=== PATIENT | female | born 1960 | race Caucasian/White ===

== ENCOUNTER → 2022-01-25 08:55 | Outpatient (CLI) | payer OTHER, MEDICAID, SELFPAY ==
--- NOTE | 2022-01-25 | DI.ECHO.S_ITS ---
[facility]---------+ [facility] +---------+ : : [address] : : : : [id number] : : : : Phone: [phone]---------+ Echocardiogram Report + + :Name: MARIELA GALVAN Study Date: 01/25/2022 Height: 67 in : :[facility] ReadingLocation: Weight: 297 lb : : Gender: Female BSA: 2.4 m2 : :: 1960 Age: 61 yrs BP: 128/86 mmHg: :Reason For Study: PALPITATIONS : :Ordering Physician: BARBRA, : :CINDY Performed By: Viktoriya Hurd : :Referring: CINDY BELLE : + + Interpretation Summary The ejection fraction is estimated to be 60-65%. Diastolic parameters suggest probable normal left ventricular diastolic function and normal filling pressures. The right ventricle is normal in size and function. No significant valvular abnormalities. Pulmonary artery pressures cannot be estimated. Procedure: A two-dimensional transthoracic echocardiogram with color flow and Doppler was performed. The study quality was technically difficult. There is no prior echocardiogram noted for this patient. The patient was in sinus rhythm with heart rates between 59-75 bpm during the exam. Left Ventricle: The left ventricle is normal in size and wall thickness. The ejection fraction is estimated to be 60-65%. Diastolic parameters suggest probable normal left ventricular diastolic function and normal filling pressures. Right Ventricle: The right ventricle is normal in size and function. Atria: The left atrial size is normal. Right atrial size is normal. There is no Doppler evidence for an interatrial shunt. Mitral Valve: The mitral valve is normal in structure and function. There is trace mitral regurgitation. Aortic Valve: The aortic valve opens well. There is no aortic valve stenosis. No aortic regurgitation is present. Tricuspid Valve: The tricuspid valve is normal in structure and function. There is trace tricuspid regurgitation. Pulmonary artery pressures cannot be estimated because of the lack of a measurable TR jet velocity. Pulmonic Valve: The pulmonic valve is not well visualized. There is trace pulmonic regurgitation. Great Vessels: The aortic root is normal size. The dimensions of the ascending aorta are normal. The IVC is of normal diameter and collapses greater than 50% with a sniff. This suggests a low right atrial pressure of 3 mm Hg. Pericardium/ Pleura There is no pericardial effusion. There is no pleural effusion. MMode/2D Measurements & Calculations LVIDd: 5.1 cm LVOT diam: 2.2 cm LVIDs: 3.2 cm Ao root diam: 2.9 cm FS: 37.0 % asc Aorta Diam: 3.2 cm IVSd: 1.1 cm Ao Arch Diam (Prox Trans): 2.6 cm LVPWd: 0.92 cm LV moya. diameter/BSA (cm/m^2): 2.1 LV sys. diameter/BSA (cm/m^2): 1.3 LA A2 area: 20.4 cm2 RA long axis: 5.1 cm LA A4 area: 16.9 cm2 RA area: 15.5 cm2 LA length (vol): 5.1 cm RA vol: 40.1 ml LA vol: 57.0 ml RA : 16.8 ml/m2 LA vol index: 23.8 ml/m2 IVC diam: 1.4 cm RVD1 (basal): 4.0 cm RVD2 (mid): 3.8 cm TAPSE: 2.0 cm Doppler Measurements & Calculations Ao V2 max: 168.7 cm/sec LVOT Max Kp: 132.9 cm/sec Ao V2 mean: 110.3 cm/sec LV V1 max P.1 mmHg Ao max P.5 mmHg LV V1 VTI: 28.4 cm Ao mean P.5 mmHg SOFIA(I,D): 3.0 cm2 Ao V2 VTI: 34.2 cm SOFIA(V,D): 2.9 cm2 sev ratio: 0.83 SOFIA indexed to BSA (cm^2/m^2): 1.3 MV E max kp: 91.2 cm/sec PA V2 max: 136.5 cm/sec MV A max kp: 72.5 cm/sec PA V2 mean: 92.1 cm/sec MV E/A: 1.3 PA mean P.8 mmHg Med Peak E' Kp: 9.3 cm/sec PA pr(Accel): 25.9 mmHg E/E' med: 9.8 Lat Peak E' Kp: 10.8 cm/sec E/E' lat: 8.4 E/e' average: 9.1 MV dec time: 0.24 sec SV(ZAINA): 104.3 ml Reading Physician:12:17 PM
== END ==
PROVIDERS: PCP Nurse Practitioner; Referring Provider Nurse Practitioner; Visit Provider Nurse Practitioner
DX: R00.2 Palpitations (principal)
CPT/HCPCS: 93306

== ENCOUNTER → 2022-04-06 14:08 | Outpatient (CLI) | payer OTHER, MEDICAID, SELFPAY ==
[2022-04-06 15:14] LABS: COVID19 -Nasal RAPID Negative (Negative)
--- NOTE | 2022-04-06 18:34 | DI.NM.S_ITS ---
DATE OF SERVICE: 04/06/2022 PROCEDURE: Exercise stress test. INDICATION: Paroxysmal AFib, hypertension, hyperlipidemia. CARDIAC STRESS: The patient underwent exercise stress test under the supervision of an attending staff. He walked on Gera protocol for 3 minutes and 29 seconds, achieved maximum heart rate of 144, which was 91 percent of target heart rate, 4.6 METs of workload and positive NERISSA of 46 percent. The patient had shortness of breath. No chest discomfort. Baseline rhythm was sinus. During stress, there were no convincing ischemic changes seen. There were some nonspecific ST changes. The patient has frequent PVCs, as well as PACs, without any ventricular tachycardia or obvious atrial fibrillation. Within 2 minutes and 50 seconds into the exercise, his heart rate went up to 133 for baseline heart rate of 75 with enhanced chronotropic response. Late recovery. After 5 minutes in recovery, heart rate dropped to 96 beats per minute. CONCLUSION: Exercise stress test did not reveal any obvious inducible ischemic changes. Diminished exercise tolerance. Functional aerobic impairment positive 46 percent. Enhanced chronotropic response and delayed recovery. The patient had shortness of breath during exercise without any chest pain. Frequent premature ventricular contractions and premature atrial contractions during stress, as well as recovery, without any sustained ventricular tachycardia or atrial fibrillation. Karime Ford - ELISEO/danny/hector doc#: [id number]/job#: [id number] dd: 04/06/2022 17:21:00 dt: 04/06/2022 17:35:00 DICTATING /COPIES TO: Rio Amaya MD COPIES MNE: SIMIN;
== END ==
PROVIDERS: PCP Nurse Practitioner; Referring Provider Internal Medicine Cardiovascular Disease; Visit Provider Internal Medicine Cardiovascular Disease
DX: I48.0 Paroxysmal atrial fibrillation (principal); Z20.822 Contact with and (suspected) exposure to COVID-19; I49.3 Ventricular premature depolarization; I49.1 Atrial premature depolarization
CPT/HCPCS: 87635; 93017